=== PATIENT | female | born 1965 | race Caucasian/White ===

== ENCOUNTER 2021-06-14 00:08 | Emergency (ER) | payer BC ==
[2021-06-14 00:55] LABS: HEMOGLOBIN 14.3 gm/dl (12.3-15.3); RED BLOOD COUNT 4.6 M/UL (4.00-5.10); WHITE BLOOD COUNT 6.4 K/UL (4.5-11.0)
[2021-06-14 01:11] LABS: BUN/CREATININE RATIO 15 (0-10)
== END 2021-06-14 03:24 | disposition home or self-care (01) ==
LOC: ER1 00:08
PROVIDERS: Physician Assistant
DX: N93.9 Abnormal uterine and vaginal bleeding, unspecified (principal)
CPT/HCPCS: 80053; 81001; 83690; 83735; 84439; 84443; 85025; 85652; 86140; 87086; 99284